=== PATIENT | female | born 2000 | race Caucasian/White ===

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

== ENCOUNTER → 2023-05-19 | Outpatient (CLI) | payer OTHER ==
--- NOTE | 2023-05-19 17:32 | US ---
EXAMINATION TYPE: US transvaginal DATE OF EXAM: 05/19/2023 COMPARISON: NONE CLINICAL INDICATION: Female, 22 years old with history of N89.8 Vaginal discharge; Vaginal discharge. Hx ovarian cysts. Patient is having no pain or bleeding. G0. TECHNIQUE: Transvaginal (TV). Date of LMP: 04/22/2023 EXAM MEASUREMENTS: Uterus: 8.8 x 5.7 x 4.2 cm Endometrial Stripe: 0.68 cm Right Ovary: 3.6 x 2.5 x 2.1 cm Left Ovary: 3.4 x 2.3 x 1.6 cm 1. Uterus: Anteverted and otherwise within normal limits 2. Endometrium: 0.68 cm. 3. Right Ovary: Hypoechoic, solid lesion with peripheral vascularity seen: 1.4 x 1.5 x 1.5 cm. 4. Left Ovary: Normal follicular change. 5. Bilateral Adnexa: prominent vessels seen within left adnexa: 6 mm. 6. Posterior cul-de-sac: Appears wnl IMPRESSION: 1. A solid-appearing 1.5 cm round lesion in the right ovary with peripheral vascularity. Findings gloria pected to represent a hemorrhagic corpus luteum. Follow-up in 6-8 weeks to ensure involution. 2. Normal follicular change in the left ovary. 3. Prominent vessels in the left adnexa may be physiologic or could reflect pelvic congestion syndrom e. Clinically correlate.
== END | disposition home or self-care (01) ==
LOC: RADUSWWP 15:08
PROVIDERS: ATTEND Family Medicine
DX: N89.8 Other specified noninflammatory disorders of vagina (principal); N83.9 Noninflammatory disorder of ovary, fallopian tube and broad ligament, unspecified; N83.209 Unspecified ovarian cyst, unspecified side
CPT/HCPCS: 76830

== ENCOUNTER 2024-01-07 18:06 | Emergency (ER) | payer OTHER ==
[2024-01-07 18:24] VITALS: TEMP 98.3
--- NOTE | 2024-01-07 19:04 | US ---
EXAMINATION TYPE: US venous doppler duplex LE RT DATE OF EXAM: 01/07/2024 6:22 PM COMPARISON: NONE CLINICAL INDICATION: Female, 23 years old with history of Leg swelling; Patient states leg swelling f or a few days. Pain. No redness. Patient has no hx of DVT. SIDE PERFORMED: Right TECHNIQUE: The lower extremity deep venous system is examined utilizing real time linear array sonog adarsh with graded compression, doppler sonography and color-flow sonography. VESSELS IMAGED: Common Femoral Vein Deep Femoral Vein Greater Saphenous Vein * Femoral Vein Popliteal Vein Small Saphenous Vein * Proximal Calf Veins (* superficial vessels) Right Leg: Appears negative for DVT IMPRESSION: No sonographic evidence for deep venous thrombosis in the right lower extremity as visual ized.
--- NOTE | 2024-01-07 19:23 | ED ---
Extremity Problem HPI - General Chief complaint: Extremity Problem,Nontraumatic Stated complaint: 8mnths preg/leg swelling Time Seen by Provider: 01/07/24 19:00 Source: patient, RN notes reviewed Mode of arrival: ambulatory Limitations: no limitations - History of Present Illness Initial comments: 23-year-old female at 33 weeks gestation presenting with right foot swelling x 4 days. States she has been having a lot of pain and swelling to top of right foot. States she has had some mild swelling in her arms and legs during the but this is more painful than usual. She was seen at urgent care where they told her that her urine was negative for protein however they sent her to ER for DVT rule out. She follows with OB at [facility]. Denies any issues thus far in the such as preeclampsia. Denies chest pain, shortness of breath, fever, chills, injury or trauma, dysuria, urinary frequency. Denies history of blood clots. Denies recent surgery, travel, patient is a non-smoker. - Related Data Home Medications Medication Instructions Recorded Confirmed Albuterol Sulfate [Ventolin HFA] 1 - 2 puff INHALATION RT-Q4H PRN 10/31/16 03/26/18 Fluticasone Nasal [place] [Flonase 1 spray EA NOSTRIL DAILY PRN 03/26/18 03/26/18 Nasal [place]] Allergies Allergy/AdvReac Type Severity Reaction Status Date / Time No Known Allergies Allergy Verified 01/07/24 18:11 Review of Systems ROS Statement: Those systems with pertinent positive or pertinent negative responses have been documented in the HPI. ROS Other: All systems not noted in ROS Statement are negative. Past Medical History Past Medical History: Asthma History of Any Multi-Drug Resistant Organisms: None Reported Past Surgical History: Tonsillectomy Past Psychological History: No Psychological Hx Reported Past Alcohol Use History: None Reported Past Drug Use History: None Reported General Exam Limitations: no limitations General appearance: alert, in no apparent distress Head exam: Present: atraumatic, normocephalic, normal inspection Right Knee exam: Present: normal inspection, full ROM. Absent: tenderness, swelling Lower Leg exam: Present: normal inspection, full ROM. Absent: tenderness, swelling Ankle exam: Present: normal inspection, full ROM. Absent: tenderness, swelling Foot/Toe exam: Present: normal inspection, full ROM, tenderness (Mild tenderness on dorsal aspect of right foot), swelling (Mild edema on dorsal aspect of right foot, no pitting edema). Absent: erythema Neurovascular tendon exam: Present: no vascular compromise. Absent: pulse deficit, abnormal cap refill, motor deficit, sensory deficit Course Vital Signs 01/07/24 01/07/24 18:07 21:17 Temperature 98.3 F 98.3 F Pulse Rate 84 78 Respiratory 16 18 Rate Blood Pressure 123/69 118/75 O2 Sat by Pulse 98 98 Oximetry Medical Decision Making - Medical Decision Making Was pt. sent in by a medical professional or institution (, PA, TRAVEL MED SURG RN, urgent care, hospital, or [place] health care facility...) When possible be specific @ -Sent by urgent care for DVT rule out Did you speak to anyone other than the patient for history (EMS, parent, family, police, friend...)? What history was obtained from this source @ -No Did you review nursing and triage notes (agree or disagree)? Why? @ -I reviewed and agree with nursing and triage notes Were old charts reviewed (outside hosp., previous admission, EMS record, old EKG, old radiological studies, urgent care reports/EKG's, [place] health care facility records)? Report findings @ -No old charts were reviewed Differential Diagnosis (chest pain, altered mental status, abdominal pain women, abdominal pain men, vaginal bleeding, weakness, fever, dyspnea, syncope, headache, dizziness, GI bleed, back pain, seizure, CVA, palpatations, mental health, musculoskeletal)? @ -Differential Musculoskeletal Muscular strain, contusion, ligament sprain, fracture, arthritis, septic arthritis, bursitis, cellulitis, muscle spasm, nerve compression, DVT, arterial occlusion, herpes zoster, electrolyte abnormality, tumor.... This is not meant to be in all inclusive list EKG interpreted by me (3pts min.). @ -None X-rays interpreted by me (1pt min.). @ -None done CT interpreted by me (1pt min.). @ -None done U/S interpreted by me (1pt. min.). @ -Ultrasound was negative for DVT in right lower extremity What testing was considered but not performed or refused? (CT, X-rays, U/S, labs)? Why? @ -None What meds were considered but not given or refused? Why? @ -None Did you discuss the management of the patient with other professionals (professionals i.e. Dr., PA, TRAVEL MED SURG RN, lab, RT, psych nurse, social services designee, high school math tutor, teacher, retail loan officer, case planner)? Give summary @ -No Was smoking cessation discussed for >3mins.? @ -No Was critical care preformed (if so, how long)? @ -No Were there social determinants of health that impacted care today? How? (Homelessness, low income, unemployed, alcoholism, drug addiction, overton sportation, low edu. Level, literacy, decrease access to med. care, senior care, rehab)? @ -No Was there de-escalation of care discussed even if they declined (Discuss DNR or withdrawal of care, Hospice)? DNR status @ -No What co-morbidities impacted this encounter? (DM, HTN, Smoking, COPD, CAD, Cancer, CVA, ARF, Chemo, Hep., AIDS, mental health diagnosis, sleep apnea, morbid obesity)? @ -None Was patient admitted / discharged? Hospital course, mention meds given and route, prescriptions, significant lab abnormalities, going to OR and other pertinent info. @ -Patient was discharged. Patient was seen and evaluated for right foot swelling x 5 days. She is currently 33 weeks . No alarm symptoms. Blood pressure is 123/69. Patient is neurovascularly intact. Ultrasound is negative for DVT in right lower extremity. Her urine is negative for protein. Labor and delivery nurse performed heart tones which revealed no abnormalities. I do not believe symptoms are caused by any emergent etiology at this time. Instructed patient to follow-up with OB. Patient is agreeable to plan. Strict return precautions discussed. Case discussed with my ED attending Dr. Beltre. Patient discharged in stable condition. Undiagnosed new problem with uncertain prognosis? @ -No Drug Therapy requiring intensive monitoring for toxicity (Heparin, Nitro, Insulin, Cardizem)? @ -No Were any procedures done? @ -No Diagnosis/symptom? @ -Right foot swelling in Acute, or Chronic, or Acute on Chronic? @ -Acute Uncomplicated (without systemic symptoms) or Complicated (systemic symptoms)? @ -Uncomplicated Side effects of treatment? @ -No Exacerbation, Progression, or Severe Exacerbation? @ -No Poses a threat to life or bodily function? How? (Chest pain, [place], [place], pneumonia, PE, COPD, DKA, ARF, appy, cholecystitis, CVA, Diverticulitis, Homicidal, Suicidal, threat to staff... and all critical care pts) @ -Unlikely at this time - Lab Data Lab Results 01/07/24 Range/Units 19:44 Urine Color Light Yellow Urine Appearance Clear (Clear) Urine pH 6.0 (5.0-8.0) Ur Specific [place] 1.021 (1.001-1.035) Urine Protein Negative (Negative) Urine Glucose (UA) Negative (Negative) Urine Ketones Negative (Negative) Urine Blood Negative (Negative) Urine Nitrite Negative (Negative) Urine Bilirubin Negative (Negative) Urine Urobilinogen <2.0 (<2.0) mg/dL Ur Leukocyte Esterase Trace H (Negative) Urine RBC <1 (0-5) /hpf Urine WBC 1 (0-5) /hpf Ur Squamous Epith Cells 12 H (0-4) /hpf Urine Mucus Few H (None) /hpf Disposition Clinical Impression: Swelling of right foot Disposition: HOME SELF-CARE Condition: Stable Additional Instructions: Follow-up with your OB as discussed. Please return to the Emergency Department if symptoms worsen or any other concerns. Is patient prescribed a controlled substance at d/c from ED?: No Referrals: Kwabena Gonzales MD [Primary Care Provider] - 1-2 days Time of Disposition: 20:57
[2024-01-07 20:17] LABS: Appearance,Urine Clear (Clear); Bilirubin,Urine Negative (Negative); Blood,Urine Negative (Negative); Color,Urine Light Yellow; Glucose,Urine (UA) Negative (Negative); Ketones,Urine Negative (Negative); Leukocyte Esterase,Urine Trace (Negative); Mucus,Urine Few /hpf; Nitrite,Urine Negative (Negative); Protein,Urine Negative (Negative); RBC,Urine <1 /hpf (0-5); Specific Gravity,Urine 1.021 (1.001-1.035); Squamous Epithelial Cell,Urine 12 /hpf (0-4); Urobilinogen,Urine <2.0 mg/dL (<2.0); WBC,Urine 1 /hpf (0-5)
[2024-01-07 21:18] VITALS: BP 118/75; PULSE 78; RESP 18
== END 2024-01-07 21:18 | disposition home or self-care (01) ==
LOC: EC 18:06
DX: O12.03 Gestational edema, third trimester (principal); R22.41 Localized swelling, mass and lump, right lower limb; Z3A.33 33 weeks gestation of pregnancy
CPT/HCPCS: 81001; 99284